=== PATIENT | male | born 1960 | race African-American/Black ===

== ENCOUNTER 2020-03-11 06:57 | Emergency (ER) | payer OTHER ==
[2020-03-11 07:20] VITALS: BMI 33.0
[2020-03-11] MEDS ORDERED: ONDANSETRON 4 MG/2 ML VIAL IVPUSH ONE (07:47)
[2020-03-11] MEDS ORDERED: SODIUM CHLORIDE 0.9% 500 ML INFUS.BAG IV ONE (07:47)
[2020-03-11] MEDS ORDERED: ONDANSETRON 4 MG/2 ML VIAL ONE (08:00)
[2020-03-11 08:35] LABS: BASO % 0.9 % (0-2.0); HEMATOCRIT 41.2 % (35.4-49); HEMOGLOBIN 14.3 GM/dL (11.7-16.9); LYMPH % 40.3 % (8-40); MCH 30.8 pg (25.7-33.7); MCHC 34.8 g/dl (32.0-35.9); MEAN CELL VOLUME 88.5 fl (80-96); MEAN PLT VOLUME 8.4 fl (7.5-11.1); MONO % 11.2 % (3.8-10.2); NEUT % 46.6 % (42.8-82.8); PLATELET COUNT 102 K/MM3 (134-434); RBC 4.65 M/mm3 (4.00-5.60); RDW 16.2 % (11.9-15.9)
[2020-03-11 08:45] LABS: EPI CELLS 7 /uL (0-25.1); HYALINE CASTS 6 /uL (0-3.1); INR 1.16 (0.83-1.09); URINE APPEARANCE CLEAR; URINE BACTERIA 9 /uL (0-1359); URINE BILIRUBIN NEGATIVE (NEGATIVE); URINE COLOR YELLOW; URINE GLUCOSE (UA) NEGATIVE (NEGATIVE); URINE KETONE TRACE (NEGATIVE); URINE LEUK ESTERASE NEGATIVE (NEGATIVE); URINE NITRITE NEGATIVE (NEGATIVE); URINE PROTEIN 3+ (NEGATIVE); URINE RBC 2 /uL (0-23.9); URINE WBC 6 /uL (0-25.8)
[2020-03-11 08:48] LABS: ACTIVATED PTT 36.2 SECONDS (25.2-36.5)
[2020-03-11 08:54] LABS: CHLORIDE 101 mmol/L (98-107); POTASSIUM 3.6 mmol/L (3.5-5.1)
[2020-03-11 08:56] LABS: CALCIUM 8.3 mg/dL (8.5-10.1); CO2 24 mmol/L (21-32); GLUCOSE,RANDOM 151 mg/dL (74-106)
[2020-03-11 08:57] LABS: ALBUMIN 3.9 g/dl (3.4-5.0); BLOOD UREA NITROGEN 8.4 mg/dL (7-18); OPIATES, URI NEGATIVE ng/ml (CUTOFF=300)
[2020-03-11 08:58] LABS: COCAINE, UR NEGATIVE ng/ml (CUTOFF=300); URINE AMPHETAMINES NEGATIVE ng/ml (CUTOFF=500); URINE BARBITURATES NEGATIVE ng/ml (CUTOFF=200)
[2020-03-11 08:59] LABS: CREATININE 0.8 mg/dL (0.55-1.3)
[2020-03-11 09:00] LABS: SGOT/AST 116 U/L (15-37)
[2020-03-11 09:01] LABS: BILIRUBIN,TOTAL 0.9 mg/dL (0.2-1); METHADONE, UR NEGATIVE ng/ml (CUTOFF=300); PHENCYCLIDINE,URINE NEGATIVE ng/ml (CUTOFF=25); TOT PROT 8.6 g/dl (6.4-8.2); URINE BENZODIAZEPINES NEGATIVE ng/ml (CUTOFF=200)
[2020-03-11 09:02] LABS: ALK PHOS 119 U/L (45-117)
[2020-03-11 09:17] LABS: ANION GAP 12 MMOL/L (8-16); SGPT/ALT 49 U/L (13-61); SODIUM 137 mmol/L (136-145)
[2020-03-11 10:40] VITALS: BP 120/62; PULSE 88; TEMP 98.1
== END 2020-03-11 10:40 | disposition home or self-care (01) ==
LOC: JER 06:57
PROC: 3E033GC Introduction of Other Therapeutic Substance into Peripheral Vein, Percutaneous Approach (ICD-10-PCS; principal; 2020-03-11)
DX: S06.0X0A Concussion without loss of consciousness, initial encounter (principal); W10.8XXA Fall (on) (from) other stairs and steps, initial encounter
CPT/HCPCS: 36415; 70450-TC; 71045-TC-FY; 80053; 80307; 81003; 82140; 82550; 82553; 84443; 84484; 85025; 85610; 85730; 86850; 86900; 86901; 93005; 93010; 99285-25

== ENCOUNTER 2021-09-07 12:36 | Inpatient (IN) | payer OTHER ==
[2021-09-07 13:21] VITALS: BMI 28.8
[2021-09-07] MEDS ORDERED: MAGNESIUM CITRATE 300 ML BOTTLE PO PRN (15:06)
[2021-09-07] MEDS ORDERED: MAG HYDROX/AL HYDROX/SIMETH 30 ML UNIT-DOSE CUP PO PRN (15:06)
[2021-09-07] MEDS ORDERED: LOPERAMIDE HCL 2 MG CAPSULE PO PRN (15:06)
[2021-09-07] MEDS ORDERED: MAGNESIUM HYDROX 2400MG/30ML ORAL SUSPENSION 30 ML CUP PO PRN (15:06)
[2021-09-07] MEDS ORDERED: BENZOCAINE/MENTHOL (CHLORASEPTIC ) LOZENGE MM PRN (15:06)
[2021-09-07] MEDS ORDERED: ONDANSETRON *ODT* 4 MG TABLET SL PRN (15:06)
[2021-09-07] MEDS ORDERED: hydrOXYzine PAMOATE 25 MG CAPSULE (FP) PO PRN (15:06)
[2021-09-07] MEDS ORDERED: IBUPROFEN 400 MG TABLET (FP) PO PRN (15:06)
[2021-09-07] MEDS ORDERED: ACETAMINOPHEN 325 MG TABLET (FP) PO PRN ×2 (15:06)
[2021-09-07] MEDS ORDERED: DICYCLOMINE HCL 10 MG CAPSULE PO PRN (15:06)
[2021-09-07] MEDS ORDERED: IBUPROFEN 600 MG TABLET (FP) PO PRN (15:06)
[2021-09-07] MEDS ORDERED: METHOCARBAMOL 500 MG TABLET PO PRN (15:06)
[2021-09-07] MEDS ORDERED: BISMUTH SUBSALICYLATE 262 MG/15 ML BTL PO PRN (15:06)
[2021-09-07] MEDS: THIAMINE HCL 100 MG TABLET (FP) PO SCH (22:14)
[2021-09-07] MEDS: levETIRAcetam 500 MG TABLET (FP) PO SCH (22:14)
[2021-09-07] MEDS: MELATONIN 5 MG TABLETS PO SCH (22:14)
[2021-09-08] MEDS: ENTECAVIR 0.5 MG TABLET PO SCH (10:04)
[2021-09-08] MEDS: levETIRAcetam 500 MG TABLET (FP) PO SCH ×2 (10:04→22:31)
[2021-09-08] MEDS: ENALAPRIL MALEATE 2.5 MG TABLET PO SCH (10:04)
[2021-09-08] MEDS: PRENATAL VITAMINS W/ FOLIC ACID TABLET (FP) PO SCH (10:04)
[2021-09-08] MEDS: amLODIPine BESYLATE 10 MG TABLET (FP) PO SCH (10:05)
[2021-09-08 10:36] LABS: CALCIUM 9.3 mg/dL (8.5-10.1)
[2021-09-08 10:37] LABS: ALBUMIN 3.7 g/dl (3.4-5.0); BLOOD UREA NITROGEN 4.9 mg/dL (7-18)
[2021-09-08 10:40] LABS: CREATININE 0.7 mg/dL (0.55-1.3)
[2021-09-08 10:41] LABS: TOT PROT 7.9 g/dl (6.4-8.2)
[2021-09-08 10:42] LABS: BILIRUBIN,TOTAL 0.7 mg/dL (0.2-1)
[2021-09-08 11:23] LABS: HEMATOCRIT 36.5 % (35.4-49); HEMOGLOBIN 12.7 GM/dL (11.7-16.9); MCH 31.4 pg (25.7-33.7); MCHC 34.8 g/dl (32.0-35.9); MEAN CELL VOLUME 90.3 fl (80-96); MEAN PLT VOLUME 8.1 fl (7.5-11.1); PLATELET COUNT 275 10^3/uL (134-434); RBC 4.05 M/mm3 (4.00-5.60); RDW 16.1 % (11.9-15.9); SICKLE CELL SCREEN NEGATIVE (NEGATIVE); WHITE BLOOD COUNT 8.1 K/mm3 (4.0-10.0)
[2021-09-08] MEDS ORDERED: PNEUMOC 20-VAL CONJ-DIP CRM/PF 0.5 ML SYRINGE IM ONE (12:00)
[2021-09-08] MEDS ORDERED: ENALAPRIL MALEATE 2.5 MG TABLET PO ONE (18:48)
[2021-09-08] MEDS: MELATONIN 5 MG TABLETS PO SCH (22:31)
[2021-09-08] MEDS: THIAMINE HCL 100 MG TABLET (FP) PO SCH (22:31)
[2021-09-09] MEDS: ENTECAVIR 0.5 MG TABLET PO SCH (05:51)
[2021-09-09 09:11] VITALS: BP 111/72; PULSE 99; TEMP 97.3
[2021-09-09] MEDS: PRENATAL VITAMINS W/ FOLIC ACID TABLET (FP) PO SCH (10:10)
[2021-09-09] MEDS: amLODIPine BESYLATE 10 MG TABLET (FP) PO SCH (10:10)
[2021-09-09] MEDS: ENALAPRIL MALEATE 2.5 MG TABLET PO SCH (10:10)
[2021-09-09] MEDS: levETIRAcetam 500 MG TABLET (FP) PO SCH (10:12)
== END 2021-09-09 10:12 | disposition home or self-care (01) | DRG 775 ==
LOC: YASAS 12:36 → Y3N 15:17
PROVIDERS: ADMIT Allergy & Immunology; ATTEND Surgery
PROC: HZ2ZZZZ Detoxification Services for Substance Abuse Treatment (ICD-10-PCS; principal; 2021-09-07)
DX: F10.230 Alcohol dependence with withdrawal, uncomplicated (principal); B19.10 Unspecified viral hepatitis B without hepatic coma; I10 Essential (primary) hypertension
CPT/HCPCS: 36415; 80053; 85027; 85660; 86780; 87811; 90677; 93005; 93010; C9803-CS; U0003; U0005

== ENCOUNTER 2023-08-24 14:44 | Observation (INO) | payer OTHER ==
[2023-08-24 14:58] VITALS: RESP 18
[2023-08-24 16:00] LABS: VENOUS BASE EXCESS -1.9 mmol/L (-2-2); VENOUS O2 SATURATION 79.7 % (70-80); VENOUS PCO2 38.8 mmHg (38-52); VENOUS PH 7.387 (7.310-7.410)
[2023-08-24 16:25] LABS: CHLORIDE 95 mmol/L (98-107); POTASSIUM 3.9 mmol/L (3.5-5.1); SODIUM 129 mmol/L (136-145)
[2023-08-24 16:27] LABS: ALBUMIN 3.5 g/dl (3.4-5.0); ANION GAP 11 mmol/L (4-13); BLOOD UREA NITROGEN 7.9 mg/dL (7-18); CO2 23 mmol/L (21-32); MAGNESIUM 1.7 mg/dL (1.8-2.4)
[2023-08-24 16:30] LABS: CREATININE 1.2 mg/dL (0.55-1.3); PHOSPHOROUS 3.8 mg/dL (2.5-4.9); SGOT/AST 14 U/L (15-37); SGPT/ALT 16 U/L (13-61)
[2023-08-24 16:32] LABS: TOT PROT 7.9 g/dl (6.4-8.2)
[2023-08-24 16:33] LABS: ALK PHOS 227 U/L (45-117)
[2023-08-24 16:34] LABS: GLUCOSE,RANDOM 714 mg/dL (74-106)
[2023-08-24 16:37] LABS: HEMATOCRIT 38.5 % (35.4-49); HEMOGLOBIN 13.6 GM/dL (11.7-16.9); MCH 28.6 pg (25.7-33.7); MCHC 35.3 g/dl (32.0-35.9); MEAN CELL VOLUME 80.9 fl (80-96); PLATELET COUNT 227 10^3/uL (134-434); RBC 4.76 M/mm3 (4.00-5.60); RDW 15.8 % (11.9-15.9)
[2023-08-24] MEDS: POTASSIUM CHLORIDE TABS 20 MEQ TABLET.ER (FP) PO ONE (16:38)
[2023-08-24] MEDS: SODIUM CHLORIDE 1,000 ML IV STA ×2 (16:38→17:37)
[2023-08-24] MEDS ORDERED: POTASSIUM CHLORIDE TABS 20 MEQ TABLET.ER (FP) PO ONE (16:39)
[2023-08-24] MEDS ORDERED: MAGNESIUM SULFATE IN WATER 2 GM/50 ML IVPB IVPB ONE (17:26)
[2023-08-24] MEDS: MAGNESIUM SULFATE IN WATER 2 GM/50 ML IVPB IVPB ONE (17:32)
[2023-08-24] MEDS ORDERED: INSULIN ASPART SLIDING SCALE (NOVOLOG) 1 VIAL SQ SCH (22:00)
[2023-08-24] MEDS ORDERED: INSULIN ASPART SLIDING SCALE (NOVOLOG) 1 VIAL SQ ONE (22:20)
[2023-08-24] MEDS: INSULIN ASPART SLIDING SCALE (NOVOLOG) 1 VIAL SQ SCH (22:28)
[2023-08-24 23:48] VITALS: BMI 38.7
[2023-08-25 08:54] LABS: HEMATOCRIT 41.1 % (35.4-49); HEMOGLOBIN 14.7 GM/dL (11.7-16.9); MCH 28.6 pg (25.7-33.7); MCHC 35.7 g/dl (32.0-35.9); MEAN CELL VOLUME 80.3 fl (80-96); MEAN PLT VOLUME 8.6 fl (7.5-11.1); PLATELET COUNT 245 10^3/uL (134-434); RBC 5.12 M/mm3 (4.00-5.60); RDW 15.9 % (11.9-15.9); WHITE BLOOD COUNT 5.4 K/mm3 (4.0-10.0)
[2023-08-25 09:10] LABS: POTASSIUM 3.6 mmol/L (3.5-5.1)
[2023-08-25] MEDS: amLODIPine BESYLATE 10 MG TABLET (FP) PO SCH (09:20)
[2023-08-25 09:23] LABS: BLOOD UREA NITROGEN 4.6 mg/dL (7-18)
[2023-08-25 09:24] LABS: CALCIUM 9.4 mg/dL (8.5-10.1); MAGNESIUM 1.7 mg/dL (1.8-2.4)
[2023-08-25 09:28] LABS: CREATININE 0.8 mg/dL (0.55-1.3); PHOSPHOROUS 4.1 mg/dL (2.5-4.9)
[2023-08-25] MEDS: INSULIN (LEVEMIR) 100 UNITS/ML UNITS SQ ONE (11:45)
[2023-08-26] MEDS: INSULIN (LEVEMIR) 100 UNITS/ML UNITS SQ SCH (06:53)
[2023-08-26 08:12] LABS: BASO % 0.8 % (0-2.0); EOS % 2.3 % (0-4.5); HEMATOCRIT 41.6 % (35.4-49); HEMOGLOBIN 14.6 GM/dL (11.7-16.9); LYMPH % 49.3 % (8-40); MCH 28.6 pg (25.7-33.7); MCHC 35.2 g/dl (32.0-35.9); MEAN CELL VOLUME 81.1 fl (80-96); MEAN PLT VOLUME 8.6 fl (7.5-11.1); MONO % 9.4 % (3.8-10.2); NEUT % 38.2 % (42.8-82.8); PLATELET COUNT 247 10^3/uL (134-434); POTASSIUM 4.1 mmol/L (3.5-5.1); RBC 5.12 M/mm3 (4.00-5.60); WHITE BLOOD COUNT 4.8 K/mm3 (4.0-10.0)
[2023-08-26 08:24] LABS: CALCIUM 9.5 mg/dL (8.5-10.1)
[2023-08-26 08:25] LABS: ALBUMIN 3.6 g/dl (3.4-5.0); BLOOD UREA NITROGEN 8.3 mg/dL (7-18)
[2023-08-26 08:27] LABS: CREATININE 0.8 mg/dL (0.55-1.3)
[2023-08-26 08:29] LABS: BILIRUBIN,TOTAL 1.3 mg/dL (0.2-1)
[2023-08-27] MEDS: metFORMIN HCL 500 MG TABLET (FP) PO SCH (06:22)
[2023-08-27] MEDS: INSULIN (LEVEMIR) 100 UNITS/ML UNITS SQ SCH (06:24)
[2023-08-27] MEDS ORDERED: INSULIN (LEVEMIR) 100 UNITS/ML UNITS SQ ONE (06:34)
[2023-08-27 08:58] VITALS: BP 126/72; PULSE 82; TEMP 97.9
[2023-08-27] MEDS: LEVOTHYROXINE NA 25 MCG TABLET (FP) PO SCH (11:21)
[2023-08-27] MEDS: TAMSULOSIN HCL 0.4 MG CAP PO SCH ×2 (11:34→12:14)
[2023-08-28] MEDS ORDERED: LEVOTHYROXINE NA 25 MCG TABLET (FP) PO SCH (07:00)
== END 2023-08-27 18:31 | disposition home or self-care (01) ==
LOC: JER 14:44 → INTOOBSV 19:41 → JERBED 19:41 → J6S 22:51
PROVIDERS: ADMIT Internal Medicine; ATTEND Internal Medicine
PROC: 3E013VG Introduction of Insulin into Subcutaneous Tissue, Percutaneous Approach (ICD-10-PCS; principal; 2023-08-24)
PROC: 3E033GC Introduction of Other Therapeutic Substance into Peripheral Vein, Percutaneous Approach (ICD-10-PCS; 2023-08-24)
PROC: 3E0337Z Introduction of Electrolytic and Water Balance Substance into Peripheral Vein, Percutaneous Approach (ICD-10-PCS; 2023-08-24)
DX: E11.65 Type 2 diabetes mellitus with hyperglycemia (principal); I10 Essential (primary) hypertension; E03.9 Hypothyroidism, unspecified; B19.10 Unspecified viral hepatitis B without hepatic coma
CPT/HCPCS: 36415; 80048; 80053; 82010; 82803; 82962; 83036; 83735; 84100; 84439; 84443; 84481; 85025; 85027; 93005; 93010; 99285-25; G0378

== ENCOUNTER 2023-10-30 04:23 | Day surgery (SDC) | payer OTHER ==
[2023-10-24 09:00] VITALS: BMI 36.5
[2023-10-30 12:28] VITALS: TEMP 98
[2023-10-30 12:32] VITALS: RESP 18
[2023-10-30 13:09] VITALS: BP 115/72; PULSE 76
== END 2023-10-30 13:22 | disposition home or self-care (01) ==
LOC: JASU-ENDO 04:23
PROVIDERS: ATTEND Internal Medicine Gastroenterology
PROC: 0DB78ZX Excision of Stomach, Pylorus, Via Natural or Artificial Opening Endoscopic, Diagnostic (ICD-10-PCS; 2023-10-30)
PROC: 0DB68ZX Excision of Stomach, Via Natural or Artificial Opening Endoscopic, Diagnostic (ICD-10-PCS; 2023-10-30)
PROC: 0DB98ZX Excision of Duodenum, Via Natural or Artificial Opening Endoscopic, Diagnostic (ICD-10-PCS; principal; 2023-10-30 11:00)
DX: Z12.11 Encounter for screening for malignant neoplasm of colon (principal); D12.5 Benign neoplasm of sigmoid colon; K64.8 Other hemorrhoids; D13.1 Benign neoplasm of stomach; K29.50 Unspecified chronic gastritis without bleeding; B96.81 Helicobacter pylori [H. pylori] as the cause of diseases classified elsewhere
CPT/HCPCS: 82962; 88305-TC; 88341-TC; 88342-TC